=== PATIENT | male | born 1950 | race Caucasian/White ===

== ENCOUNTER → 2016-08-20 | Outpatient (CLI) | payer MEDICARE, OTHER | LOC: COL.RAD 14:02 | DX: K57.10 Diverticulosis of small intestine without perforation or abscess without bleeding (principal); R50.9 Fever, unspecified; R10.11 Right upper quadrant pain; R10.31 Right lower quadrant pain | CPT/HCPCS: Q9967 ==

== ENCOUNTER → 2016-09-04 | Outpatient (CLI) | payer MEDICARE, OTHER | LOC: COL.VAS 12:30 | DX: I82.441 Acute embolism and thrombosis of right tibial vein (principal); I26.99 Other pulmonary embolism without acute cor pulmonale ==

== ENCOUNTER → 2017-02-05 | Outpatient (CLI) | payer MEDICARE, OTHER | LOC: MC.RAD 12:59 | DX: N62 Hypertrophy of breast (principal) ==